=== PATIENT | male | born 1990 | race Caucasian/White ===

== ENCOUNTER 2024-03-08 10:07 | Emergency (ER) | payer SELFPAY ==
[2024-03-08] MEDS: Lidocaine 1% 10 ML MDV INJECT ONE (12:23)
== END 2024-03-08 12:19 | disposition home or self-care (01) ==
LOC: JD.ED 10:07
DX: S67.193A Crushing injury of left middle finger, initial encounter (principal); S61.303A Unspecified open wound of left middle finger with damage to nail, initial encounter; F17.210 Nicotine dependence, cigarettes, uncomplicated; W20.8XXA Other cause of strike by thrown, projected or falling object, initial encounter
CPT/HCPCS: 73140-26-F2; 73140-F2; 99283; J3490

== ENCOUNTER 2024-03-28 18:04 | Emergency (ER) | payer SELFPAY ==
[2024-03-28] MEDS: Sulfamethoxazole/Trimethoprim 800-160 MG Tab PO ONE (18:49)
== END 2024-03-28 18:50 | disposition home or self-care (01) ==
LOC: JD.ED 18:04
DX: L03.012 Cellulitis of left finger (principal); E10.9 Type 1 diabetes mellitus without complications; Z79.899 Other long term (current) drug therapy
CPT/HCPCS: 99283; A9270; 99284